=== PATIENT | female | born 1990 | race Caucasian/White ===

== ENCOUNTER 2017-04-05 21:10 | Emergency (ER) | payer SELFPAY ==
--- NOTE | 2017-04-05 21:45 | ERNOTE ---
Headache ER HPI - General Presenting Symptoms: headache, other - and abdominal pain Time Seen by Provider: 04/05/17 21:44 Source: patient Exam Limitations: no limitations - Immun/Allergies/Home Medications Immunizations: IMMUNIZATION HX Immunizations Up to Date Yes History of Influenza Vaccine No Hx Pneumococcal Vaccination No Allergies/Adverse Reactions: Allergies shellfish derived Allergy (Verified 04/05/17 22:26) amoxicillin Adverse Reaction (Mild, Verified 04/05/17 22:26) Other Yeast infections Home Medications: HOME MEDICATIONS Acetaminophen [Extra Strength Non-Aspirin] 1,000 mg PO DAILY 01/09/16 [Last Taken Unknown] Ibuprofen [Motrin] 400 mg PO Q6H PRN 01/09/16 [Last Taken 01/09/16 04:00 600 mg] Ondansetron HCl [Zofran] 1 - 2 tab PO Q8H PRN #10 tab 04/06/17 [Last Taken Unknown] - Pain Pain Score: 6 - History of Present Illness Narrative: Pt states she has had abdominal pain for 3-4 weeks, that moves around to different locations. She has had migraine that has been daily x 2-3 weeks accompanied by nausea/ vomiting. Pt smiling and moving about the room without difficulty Activity at onset: other Timing of Headache: gradual, intermittent Quality: Present: throbbing Severity Maximum: Present: moderate Severity-Currently: Present: moderate Headache frequency: Present: frequent headaches, similar to previous headache Modifying Factors - (Improves): Reports: medication - excedrin helps a little bit Modifying Factors - (Worsens): Reports: movement Associated Symptoms: Reports: nausea, vomiting Review of Systems - Review of Systems Constitutional: Present: fatigue - that is "unlike" her.. Absent: recent illness, fever EYE: Absent: vision changes ENT: Present: no symptoms reported Respiratory: Absent: shortness of breath Cardiology: Absent: chest pain Gastrointestinal/Abdominal: Present: See HPI Genitourinary: Present: frequency, pain Musculoskeletal: Present: back pain Skin: Absent: rash Neurological: Present: See HPI, headache Endocrine: Absent: excessive sweating, flushing Hematologic/Lymphatic: Present: no symptoms reported Psych: Present: no symptoms reported - Patient's Past Medical History Patient History - Medical: Anxiety, Depression, Migraines, UTI'S, Other Patient History - Cardiac/Respiratory: Bronchitis Patient History - Cancer: Endometrial Patient History - Surgical Procedures: Cancer Surgery, , Hysterectomy, Other Patient History - Other: None - Social History Living Situations: home Abuse History: No History of abuse Psych History: Hx of Anxiety, Hx of Depression Smoking Status: Current every day smoker Have you smoked in the past 12 months: Yes Do you dip or chew tobacco: No Patient requests Smoking Cessation Consult: No Initiate information on Smoking Cessation: No Alcohol Use: rarely Drug Use: other - Immunizations Immunizations Up to Date: Yes Hx Pneumococcal Vaccination: No History of Influenza Vaccine: No Physical Exam - Physical Exam General Appearance: Present: wd/wn, alert, no apparent distress Head Exam: Present: normal inspection, no evidence of injury Eye Exam: Normal inspection: bilateral, PERRL: bilateral, EOMI: bilateral Ears, Nose, Throat: Present: normal ENT inspection Neck: Present: normal inspection, nontender, supple Respiratory: Present: no respiratory distress, normal breath sounds, lungs clear Cardiovascular/Chest: Present: regular rate, rhythm, no murmur Gastrointestinal/Abdominal: Present: normal bowel sounds, tenderness - Right side, . Absent: guarding, rebound Back Exam: Present: CVA tenderness (R). Absent: vertebral tenderness Extremity Exam: Present: normal range of motion Neurological Exam: Present: alert, oriented, normal mood/affect Skin Exam: Present: normal color, warm/dry Lymphatic Exam: Present: no adenopathy ED Progress - Results and Orders Patient's Lab Results:: I have reviewed the patient's lab results. Results and Orders: Laboratory Tests 04/05/17 04/05/17 04/05/17 21:40 21:58 21:58 WBC 10.9 H Hgb 14.0 Hct 41.2 Plt Count 283 Sodium 141 Potassium 4.1 Chloride 105 Carbon Dioxide 27.4 Anion Gap 12.7 BUN 5 Creatinine 0.86 Est GFR (Non-Af Amer) 86 BUN/Creatinine Ratio 5.8 L Random Glucose 116 H Calcium 8.7 Total Bilirubin 0.3 AST 11 ALT 20 Alkaline Phosphatase 68 Total Protein 7.3 Albumin 3.9 Urine Color Yellow Urine Appearance Clear Urine pH 6.0 Ur Specific [place] <=1.005 Urine Protein Negative Urine Glucose (UA) Negative Urine Ketones Negative Urine Blood Negative Urine Nitrate Negative Urine Bilirubin Negative Urine Urobilinogen Normal Ur Leukocyte Esterase Negative Urine RBC None seen Urine WBC None seen Ur Epithelial Cells 0-5 Urine Bacteria 1+ H Urine Culture Comments No culture indicated - Vital Signs Patient's Vital Signs:: I have reviewed the patient's vital signs. Vital Signs: Vital Signs 04/05/17 21:22 Temperature 37.5 C Pulse Rate 99 Respiratory 16 Rate Blood Pressure 132/91 O2 Sat by Pulse 98 Oximetry - X-Ray X-Ray #1 X-Ray: abdomen Interpretation: Reviewed by me X-ray Comments: Findings: Mild stool is within the realm of normal variability. There are no air-filled dilated loops of bowel suggest obstruction. No free air identified. IMPRESSION: NO ACUTE ABDOMINAL PATHOLOGY IDENTIFIED. Electronically signed by Dewayne Hawk M.D.. - Progress/Reassessment Chief Complaint: Headache Progress Note-Subjective: 04/06/17 01:35 Pt states she is feeling somewhat better but still has headache. I discussed her lab tests and x-ray results that are benign. Discussed triptans with the patient and she says that she was previously on "tramadol shots" (maybe stadol?) , which she didn't like how it made her feel. I offered Imitrex and explained the action of the medication. Pt agreed and would just like some anti nausea medication and she can then follow up with her PCP. Departure Clinical Impression: Nausea Migraine Qualifiers: Migraine type: without aura Status migrainosus presence: without status migrainosus Intractability: not intractable Qualified Code(s): G43.009 - Migraine without aura, not intractable, without status migrainosus - Departure Disposition: Home Follow Up Needed Condition: Fair Instructions: Migraine Headache, [id number], Nausea, Adult, [id number] Additional Instructions: See your primary care provider if your symptoms continue. Prescriptions: Ondansetron HCl [Zofran] 1 - 2 tab PO Q8H PRN #10 tab PRN Reason: Nausea
[2017-04-05 22:01] LABS: Urine Bilirubin Negative (NEGATIVE); Urine Blood Negative /ul (NEGATIVE); Urine Ketone Negative (NEGATIVE); Urine Nitrite Negative (NEGATIVE); Urine Protein Negative (NEGATIVE); Urine Specific Gravity <=1.005 SP.GR. (1.005-1.010); Urine Urobilinogen Normal (NORMAL)
[2017-04-05 22:02] LABS: Hematocrit 41.2 % (37.0-47.0); Mean Cell Volume 86.9 fl (78-100); Mean Corpuscular Hemoglobin 29.5 pg (27-31); Mean Platelet Volume 10.1 fl (6.0-9.5); Neutrophil # 7.2 K/mm3 (1.3-6.0); Neutrophil % 65.9 % (42-75.0); Platelet Count 283 K/mm3 (150-450); Red Blood Count 4.74 M/mm3 (4.2-5.4); Red Cell Distribution Width 12.4 % (11.5-14.0); White Blood Count 10.9 K/mm3 (4.0-10.5)
[2017-04-05 22:16] LABS: Albumin * 3.9 gm/dl (3.4-5.0); Anion Gap 12.7 mmol/L (6.8-13.8); BUN/Creatinine Ratio 5.8 (9.0-21.6); Bilirubin, Total 0.3 mg/dL (0.0-1.1); Ca. Corrected For Albumin 8.5 mg/dL (8.4-10.2); Calcium * 8.7 mg/dL (7.9-10.9); Carbon Dioxide 27.4 mmol/L (24-32.6); Potassium 4.1 mmol/L (3.4-4.6); Total Protein 7.3 gm/dL (6.2-8.2)
[2017-04-05 22:28] LABS: Urine Appearance Clear; Urine Color Yellow
[2017-04-05 22:29] LABS: Urine Bacteria 1+; Urine RBC None Seen /hpf (0-5); Urine WBC None Seen /hpf (0-5)
[2017-04-06] MEDS ORDERED: SUMAtriptan SUCCINATE 6 MG/0.5 ML VIAL SC ONE (01:42)
[2017-04-06] MEDS ORDERED: ONDANSETRON 4 MG TAB.RAPDIS ONE (01:42)
[2017-04-06 01:45] VITALS: BP 123/70
[2017-04-06] MEDS: SUMAtriptan SUCCINATE 6 MG/0.5 ML VIAL SC ONE (01:47)
[2017-04-06] MEDS: ONDANSETRON 4 MG TAB.RAPDIS PO ONE (01:47)
== END 2017-04-06 01:58 | disposition home or self-care (01) ==
LOC: ER 21:10
DX: G43.009 Migraine without aura, not intractable, without status migrainosus (principal); K59.00 Constipation, unspecified; F17.210 Nicotine dependence, cigarettes, uncomplicated